=== PATIENT | female | born 1925 | race Caucasian/White ===

== ENCOUNTER 2016-08-11 20:41 | Emergency (ER) | payer MEDICARE, BC ==
[2016-08-11] MEDS ORDERED: NS 0.9% 1000 ML* 1,000 ML IV ONE (21:33)
[2016-08-11] MEDS ORDERED: Ondansetron INJ* 2 MG/ML VIAL IV ONE ×2 (21:33→23:32)
[2016-08-11 21:49] LABS: Add Diff/Slide Review? Slide Review Added; Comments Flag Yes; Hematocrit 35 % (35-47); Hemoglobin 11.7 g/dl (12.0-16.0); Mean Corpuscular HGB Conc 33 g/dl (31-36); Mean Corpuscular Hemoglobin 32 pg (27-31); Mean Corpuscular Volume 95 fL (80-97); Mean Platelet Volume 9 um3 (7.4-10.4); Red Blood Count 3.71 10^6/ul (4.0-5.4); Red Cell Distribution Width 13 % (10.5-15); White Blood Count 12.3 10^3/ul (3.5-10.8)
[2016-08-11 22:00] LABS: Albumin 3.9 g/dL (3.2-5.2); BUN/Creatinine Ratio 24.1 (8-20); C Reactive Protein 3.22 mg/L (< 5.00); Calcium 9.3 mg/dL (8.6-10.3); EGFR African American 48.4 (>60); EGFR Non-African American 37.7 (>60); Globulin 2.9 g/dL (2-4); Magnesium 1.7 mg/dL (1.9-2.7); Potassium 4.6 mmol/L (3.5-5.0); Total Protein 6.8 g/dL (6.4-8.9); Troponin I 0.03 ng/mL (<0.04)
--- NOTE | 2016-08-11 22:26 | RAD ---
Indication: Vomiting. Single frontal view of the chest performed at 2140 hours was reviewed. Comparison is made with previous exam dated May 10, 2012. No mediastinal shift is noted. Heart is of normal size and configuration. Lung yoder appear clear. IMPRESSION: NO ACTIVE CARDIOPULMONARY DISEASE IS NOTED.
[2016-08-11 22:27] LABS: TSH (Thyroid Stimulating Horm) 1.46 mcIU/mL (0.34-5.60)
[2016-08-11 23:53] LABS: Urine Bacteria 2+ (Absent); Urine Bilirubin Negative (Negative); Urine Glucose Negative (Negative); Urine Nitrite Negative (Negative)
[2016-08-12] MEDS ORDERED: Iodixanol* (CONTRAST) 320 MG/ML 100 ML SDV IV ONE (00:35)
[2016-08-12] MEDS ORDERED: Ondansetron INJ* 2 MG/ML VIAL IV ONE (00:38)
[2016-08-12] MEDS ORDERED: Ondansetron ODT TAB* 4 MG PO ONE (01:53)
[2016-08-12 02:12] VITALS: BP 120/65
--- NOTE | 2016-08-12 04:17 | ED ---
Lester Christy Adam, scribed for Bruce Nugent MD on 08/12/16 at 0319 . Progress - Progress Note Progress Note: This patient was signed out to me by Dr. Gonzalez at 23:00, pending CT results. The patient is feeling better. We reviewed her CT and labs. The patient has not been on abx. We will send her home with a couple pills of Zofran and send a script to the pharmacy. CT A/P - IMPRESSION: NO BOWEL OBSTRUCTION OR INFLAMMATION. TINY HIATAL HERNIA. DUODENAL DIVERTICULUM. Course/Dx - Diagnoses Provider Diagnoses: Vomiting, Dehydration The documentation as recorded by the Lester webb Adam accurately reflects the service I personally performed and the decisions made by me, Bruce Nugent MD.
--- NOTE | 2016-08-12 07:48 | RAD ---
INDICATION: Vomiting. History of uterine cancer. Evaluate for small bowel obstruction COMPARISON: None TECHNIQUE: Axial source images were obtained from the hemidiaphragms to the symphysis pubis following administration of oral and intravenous contrast. 76 mL Visipaque 320 was utilized. Coronal and sagittal reconstructed images were acquired. Lung bases: The lung bases are clear. Liver: The liver is normal in size. There are no masses. There is no ductal dilatation. Gallbladder: Cholecystectomy. Spleen: The spleen is normal in size. There may be several tiny splenic cysts or hemangiomas. Pancreas: There is no focal pancreatic mass or ductal dilatation. Adrenal glands: There is no evidence of adrenal mass. Kidneys: Mild renal parenchymal thinning bilaterally. Small mid pole right renal cyst measuring 0.9 cm. Presumed small exophytic lower pole left renal cyst measuring 0.8 cm. Adenopathy: There is no evidence of adenopathy by size criteria. Fluid collections: There are no free or localized fluid collections. Vessels:There are atherosclerotic changes involving the aorta and iliac vessels. There is no focal aneurysm. The IVC appears normal. GI tract: There is a small hiatal hernia. There is a duodenal diverticulum. The upper GI tract is otherwise unremarkable. There are moderate diverticula of the sigmoid and descending colon without CT evidence of acute diverticulitis. The appendix is visualized and appears normal. There is no obstruction. Pelvic organs: There is hysterectomy. There is no adnexal mass Bladder: There are no bladder masses. Abdominal and pelvic soft tissues: The extraperitoneal abdominal and pelvic soft tissues appear normal.. Osseous structures: Spondylitic change of the lumbar spine. No acute bony changes Other: None IMPRESSION: NO ACUTE CT FINDINGS. NO MASS OR INFLAMMATORY CHANGES. SMALL HIATAL HERNIA. SCATTERED DIVERTICULA.
--- NOTE | 2016-08-13 08:20 | ED ---
I, Oh,Thong, scribed for Fadi Gonzalez MD on 08/11/16 at 2328 . GI/ HPI - HPI Summary HPI Summary: This 89 y/o female presents to ED for acute n/v since 1200 PM today. Son present at bedside that pt was n/v every 20 minutes. Pt denies fever, chills, diaphoresis, diarrhea, CP, abd pain, myalgia, or dizziness. PSHx includes cholecystectomy and hysterectomy. Plan of care involving CT scan and possible admission is discussed with pt. Pt expresses understanding. no fever, chills, diaphoresis, diarrhea, CP, abd pain, no myalgia, no dizzines avinash and hysterectomy. - History of Current Complaint Chief Complaint: EDNauseaVomitDiarrh Time Seen by Provider: 08/11/16 21:56 Stated Complaint: VOMITING Pain Intensity: 0 - Additional Pertinent History Primary Care Physician: KAYLEY - Allergy/Home Medications Allergies/Adverse Reactions: Allergies Allergy/AdvReac Type Severity Reaction Status Date / Time Carisoprodol [From Soma] Allergy Swelling Verified 05/29/15 12:05 Of Face,Lips,& Throat Clarithromycin [From Biaxin] Allergy Swelling Verified 05/29/15 12:05 Of Face,Lips,& Throat Codeine Allergy Itching Verified 05/29/15 12:05 Milk-related Compounds Allergy Nausea Verified 05/29/15 12:05 Moxifloxacin [From Avelox] Allergy Swelling Verified 05/29/15 12:05 Of Face,Lips,& Throat Prednisone Allergy See Comment Verified 05/29/15 12:05 Propoxyphene [From Darvon] Allergy Swelling Verified 05/29/15 12:05 Of Face,Lips,& Throat Sulfa Antibiotics Allergy Unknown Verified 05/29/15 12:05 Reaction Details Sulindac [From Clinoril] Allergy See Comment Verified 05/29/15 12:05 NARCOTIC PAIN MEDICATIONS Allergy "SPACEY", Uncoded 05/29/15 12:05 TINGLING ON CHEEKS AND CHIN PMH/Surg Hx/FS Hx/Imm Hx Cardiovascular History: Reports: Hx Hypercholesterolemia, Hx Hypertension - ON MEDICATION FOR Respiratory History: Reports: Hx Asthma GI History: Reports: Other GI Disorders - HX OF PANCREATITIS-20+ YEARS AGO Musculoskeletal History: Reports: Hx Arthritis - THROUGHOUT, Hx Bursitis - HX OF IN THE PAST- 30 YEARS AGO, Hx Osteoporosis Sensory History: Reports: Hx Cataracts, Hx Contacts or Glasses - GLASSES Denies: Hx Hearing Aid Opthamlomology History: Reports: Hx Cataracts, Hx Contacts or Glasses - GLASSES - Cancer History Cancer Type, Location and Year: 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 Uterine cancer Hx Chemotherapy: No Hx Radiation Therapy: No - Surgical History Surgery Procedure, Year, and Place: [id number]. GALLBLADDER REMOVED Hx Anesthesia Reactions: No Infectious Disease History: No Infectious Disease History: Denies: Traveled Outside the [place] in Last 30 Days - Social History Alcohol Use: None Substance Use Type: Reports: None Smoking Status (MU): Never Smoked Tobacco Review of Systems All Other Systems Reviewed And Are Negative: Yes Physical Exam Vital Signs On Initial Exam: Initial Vitals Temp Pulse Resp BP Pulse Ox 98.9 F 91 18 140/53 97 08/11/16 20:50 08/11/16 20:50 08/11/16 20:50 08/11/16 20:50 08/11/16 20:50 - Bucky Coma Scale Coma Scale Total: 15 Diagnostics - Vital Signs Vital Signs Temp Pulse Resp BP Pulse Ox 08/11/16 21:32 99.4 F 78 16 125/56 97 08/11/16 21:30 86 141/60 97 08/11/16 21:22 78 96 08/11/16 21:20 125/56 08/11/16 20:50 98.9 F 91 18 140/53 97 - Laboratory Lab Results: Lab Results 08/11/16 08/11/16 08/11/16 Range/Units 21:35 21:35 21:35 WBC 12.3 H (3.5-10.8) 10^3/ul RBC 3.71 L (4.0-5.4) 10^6/ul Hgb 11.7 L (12.0-16.0) g/dl Hct 35 (35-47) % MCV 95 (80-97) fL MCH 32 H (27-31) pg MCHC 33 (31-36) g/dl RDW 13 (10.5-15) % Plt Count 216 (150-450) 10^3/ul MPV 9 (7.4-10.4) um3 Neut % (Auto) 88.9 H (38-83) % Lymph % (Auto) 2.6 L (25-47) % Bartholomew % (Auto) 7.2 (1-9) % Eos % (Auto) 1.0 (0-6) % Baso % (Auto) 0.3 (0-2) % Absolute Neuts (auto) 10.9 H (1.5-7.7) 10^3/ul Absolute Lymphs (auto) 0.3 L (1.0-4.8) 10^3/ul Absolute Monos (auto) 0.9 H (0-0.8) 10^3/ul Absolute Eos (auto) 0.1 (0-0.6) 10^3/ul Absolute Basos (auto) 0 (0-0.2) 10^3/ul Absolute Nucleated RBC 0 10^3/ul Nucleated RBC % 0 INR (Anticoag Therapy) 0.86 L (0.89-1.11) APTT 27.0 (26.0-36.3) seconds Sodium 138 (133-145) mmol/L Potassium 4.6 (3.5-5.0) mmol/L Chloride 109 (101-111) mmol/L Carbon Dioxide 21 L (22-32) mmol/L Anion Gap 8 (2-11) mmol/L BUN 32 H (6-24) mg/dL Creatinine 1.33 H (0.51-0.95) mg/dL Est GFR ( Amer) 48.4 (>60) Est GFR (Non-Af Amer) 37.7 (>60) BUN/Creatinine Ratio 24.1 H (8-20) Glucose 113 H (70-100) mg/dL Lactic Acid (0.5-2.0) mmol/L Calcium 9.3 (8.6-10.3) mg/dL Magnesium 1.7 L (1.9-2.7) mg/dL Total Bilirubin 1.00 (0.2-1.0) mg/dL AST 21 (13-39) U/L ALT 12 (7-52) U/L Alkaline Phosphatase 43 (34-104) U/L Troponin I 0.03 (<0.04) ng/mL C-Reactive Protein 3.22 (< 5.00) mg/L B-Natriuretic Peptide ( - 100) pg/mL Total Protein 6.8 (6.4-8.9) g/dL Albumin 3.9 (3.2-5.2) g/dL Globulin 2.9 (2-4) g/dL Albumin/Globulin Ratio 1.3 (1-3) Lipase 38 (11.0-82.0) U/L TSH 1.46 (0.34-5.60) mcIU/mL 08/11/16 08/11/16 Range/Units 21:35 21:35 WBC (3.5-10.8) 10^3/ul RBC (4.0-5.4) 10^6/ul Hgb (12.0-16.0) g/dl Hct (35-47) % MCV (80-97) fL MCH (27-31) pg MCHC (31-36) g/dl RDW (10.5-15) % Plt Count (150-450) 10^3/ul MPV (7.4-10.4) um3 Neut % (Auto) (38-83) % Lymph % (Auto) (25-47) % Bartholomew % (Auto) (1-9) % Eos % (Auto) (0-6) % Baso % (Auto) (0-2) % Absolute Neuts (auto) (1.5-7.7) 10^3/ul Absolute Lymphs (auto) (1.0-4.8) 10^3/ul Absolute Monos (auto) (0-0.8) 10^3/ul Absolute Eos (auto) (0-0.6) 10^3/ul Absolute Basos (auto) (0-0.2) 10^3/ul Absolute Nucleated RBC 10^3/ul Nucleated RBC % INR (Anticoag Therapy) (0.89-1.11) APTT (26.0-36.3) seconds Sodium (133-145) mmol/L Potassium (3.5-5.0) mmol/L Chloride (101-111) mmol/L Carbon Dioxide (22-32) mmol/L Anion Gap (2-11) mmol/L BUN (6-24) mg/dL Creatinine (0.51-0.95) mg/dL Est GFR ( Amer) (>60) Est GFR (Non-Af Amer) (>60) BUN/Creatinine Ratio (8-20) Glucose (70-100) mg/dL Lactic Acid 0.7 (0.5-2.0) mmol/L Calcium (8.6-10.3) mg/dL Magnesium (1.9-2.7) mg/dL Total Bilirubin (0.2-1.0) mg/dL AST (13-39) U/L ALT (7-52) U/L Alkaline Phosphatase (34-104) U/L Troponin I (<0.04) ng/mL C-Reactive Protein (< 5.00) mg/L B-Natriuretic Peptide 97 ( - 100) pg/mL Total Protein (6.4-8.9) g/dL Albumin (3.2-5.2) g/dL Globulin (2-4) g/dL Albumin/Globulin Ratio (1-3) Lipase (11.0-82.0) U/L TSH (0.34-5.60) mcIU/mL Result Diagrams: 08/11/16 21:35 08/11/16 21:35 Lab Statement: Any lab studies that have been ordered have been reviewed, and results considered in the medical decision making process. GIGU Course/Dx - Course Assessment/Plan: Pt is signed out with CT Ab/P pending in order to r/o obstruction. Pt may be discharged if she can tolerate PO intake. - Diagnoses Provider Diagnoses: Vomiting, Dehydration Discharge - Discharge Plan Condition: Stable Disposition: HOME Discharge Disposition Comment: CT Ab/P pending. Signed out at shift change. Prescriptions: Ondansetron ODT TAB* [Zofran 4 MG Odt TAB*] 4 mg PO Q8H PRN #20 tab.odt PRN Reason: nausea Patient Education Materials: Dehydration (ED), Acute Nausea and Vomiting (ED) Referrals: Dodie Bateman MD [Primary Care Provider] - Additional Instructions: Follow up with your Primary Care Physician. Take Zofran for nausea. The documentation as recorded by the Hunter webb Soohyun accurately reflects the service I personally performed and the decisions made by , Fadi Gonzalez MD.
== END 2016-08-12 02:11 | disposition home or self-care (01) ==
LOC: ED 20:41
DX: E86.0 Dehydration (principal); R11.10 Vomiting, unspecified
CPT/HCPCS: 36415; 71010; 74177; 80053; 81003; 81015; 83605; 83690; 83735; 83880; 84443; 84484; 85025; 85610; 85730; 86140; 87086; 99283; J2405; Q9967